=== PATIENT | male | born 1970 | race Two or more races ===

== ENCOUNTER 2016-07-11 21:19 | Emergency (ER) | payer MEDICAID ==
[~2016-07-11] VITALS: Ht 175.3 cm; Wt 72.6 kg
[~2016-07-11 21:19] MED LIST: ATIVAN1 MG ORAL; NORVIR100 MG ORAL; PREZISTA600 MG ORAL; TRUVADA1 TAB ORAL; XANAX0.25 MG ORAL; ZANTAC150 MG ORAL
[2016-07-11 21:28] VITALS: BP 180/100
[2016-07-11] MEDS ORDERED: RESTORIL30 MG ORAL (21:39)
--- NOTE | 2016-07-11 21:40 | Emergency Room Report ---
History of Present Illness General Chief Complaint: Allergic Reaction Source: Patient Present Illness HPI This is a 45-year-old male with a history of anxiety and HIV. Previous visits show history of methamphetamine abuse. Patient presents with chief complaint of insomnia. He thought that he may have an allergic reaction. His mom was treated for scabies in March. He was also treated. He still has some itching to the back of his neck and back he seen another doctor. He was placed on a Medrol Dosepak. He only had about a day left on it. Since he has been on it he said he could not sleep last 4 days. Her jittery. No fever or chills. He thought this may be an allergic reaction. Denies any other complaint. Denies any drug use. No help with the Xanax. Allergies: Coded Allergies: No Known Allergies (Unverified , 02/18/13) Patient History Past Medical History: see triage record, old chart reviewed, psych hx, HIV Past Surgical History: other Pertinent Family History: none Social History: Denies: smoking Immunizations: other Reviewed Nursing Documentation: PMH: Agreed, PSxH: Agreed Nursing Documentation-PMH Hx Cardiac Problems: No Hx Hypertension: No Hx Pacemaker: No Hx Asthma: No Hx COPD: No Hx Cancer: No Hx Dialysis: No History Of Psychiatric Problem: No Hx Neurological Problems: No Hx Cerebrovascular Accident: No Hx Seizures: No Review of Systems Eye: Denies: blurred vision, eye pain ENT: Denies: ear pain, nose congestion, throat swelling Respiratory: Denies: cough, shortness of breath Cardiovascular: Denies: chest pain, palpitations Gastrointestinal: Denies: abdominal pain, diarrhea, nausea, vomiting Musculoskeletal: Denies: back pain, joint pain Skin: Denies: rash Neurological: Denies: headache, numbness Endocrine: Denies: increased thirst, increased urine Hematologic/Lymphatic: Denies: easy bruising All Other Systems: negative except mentioned in HPI Physical Exam Vital Signs Date Time Temp Pulse Resp B/P Pulse Ox O2 Delivery O2 Flow Rate FiO2 07/11/16 21:28 97.5 98 16 180/100 96 Room Air vitals with hypertension Sp02 EP Interpretation: reviewed, normal General Appearance: well appearing, no apparent distress, alert Head: normocephalic, atraumatic Eyes: bilateral eye EOMI, bilateral eye PERRL ENT: hearing grossly normal, normal pharynx Neck: full range of motion, supple, no meningismus Respiratory: chest non-tender, lungs clear, normal breath sounds Cardiovascular #1: regular rate, rhythm, no murmur Gastrointestinal: normal bowel sounds, non tender, no mass, no organomegaly, no bruit, non-distended Musculoskeletal: back normal, gait/station normal, normal range of motion Psychiatric: anxious Skin: warm/dry Medical Decision Making Diagnostic Impression: Primary Impression: Anxiety Additional Impression: Insomnia Qualified Codes: G47.00 - Insomnia, unspecified ER Course Patient presents with insomnia and anxiety. This is probably steroid induced. No evidence of allergic reaction. Patient reassured given Benadryl. He felt better. We'll discharge home. I will send and drug screen to make sure he is not on methamphetamine again. Last Vital Signs Date Time Temp Pulse Resp B/P Pulse Ox O2 Delivery O2 Flow Rate FiO2 07/11/16 21:28 97.5 98 16 180/100 96 Room Air Status: improved Disposition: HOME, SELF-CARE Condition: Stable Scripts Temazepam (RESTORIL*) 30 Mg Capsule 30 MG ORAL BEDTIME, #7 CAP 0 Refills Prov: WILLIAN SALVADOR M.D. 07/11/16 Additional Instructions: Followup with your DrRigoberto in 7 days. You may stop the Medrol Dosepak. Return if symptom worsen. WILLIAN SALVADOR M.D. July 11, 2016 21:40
[2016-07-11] MEDS ORDERED: DiphenhydrAMINE 50mg/ml Inj IM ONE (21:45)
[2016-07-11 21:51] VITALS: BP 145/98
== END 2016-07-11 21:59 | disposition home or self-care (01) ==
LOC: EMR 21:45
DX: G47.00 Insomnia, unspecified (principal); L29.9 Pruritus, unspecified; F15.10 Other stimulant abuse, uncomplicated
CPT/HCPCS: 80300; 96372; 99283; J1200

== ENCOUNTER 2016-07-22 20:07 | Emergency (ER) | payer MEDICAID ==
[~2016-07-22] VITALS: Ht 180.3 cm; Wt 77.1 kg
[~2016-07-22 20:07] MED LIST changes: +RESTORIL30 MG ORAL
--- NOTE | 2016-07-22 20:20 | Emergency Room Report ---
History of Present Illness General Chief Complaint: Behavioral Complaint Source: Patient, EMS Present Illness HPI Patient presents with complaints of anxiousness History from the patient somewhat limited as he appears to have evidence of flight of thought not able to focus and provide appropriate history Patient discusses having history of bipolar disorder Reports having a medication reaction last week At this time denies any headache denies any chest pain Patient reported are totally hallucinations however is nonspecific regarding suicidal thought, Allergies: Coded Allergies: DIPHENHYDRAMINE (Unverified Allergy, Unknown, 07/22/16) Patient History Past Medical History: see triage record Pertinent Family History: none Reviewed Nursing Documentation: PMH: Agreed, PSxH: Agreed Nursing Documentation-PMH Hx Cardiac Problems: No Hx Hypertension: No Hx Pacemaker: No Hx Asthma: No Hx COPD: No Hx Cancer: No Hx Dialysis: No Hx Cerebrovascular Accident: No Hx Seizures: No Review of Systems All Other Systems: limited - Other than the ones mentioned in the history of present illness all others are reviewed however they do stay limited due to the patient's mental status Physical Exam Vital Signs Date Time Temp Pulse Resp B/P Pulse Ox O2 Delivery O2 Flow Rate FiO2 07/22/16 19:57 98.2 94 18 130/47 97 Room Air Sp02 EP Interpretation: reviewed, normal General Appearance: well appearing, no apparent distress Head: normocephalic, atraumatic Eyes: bilateral eye EOMI, bilateral eye PERRL ENT: hearing grossly normal, normal pharynx, TMs + canals normal, uvula midline Neck: full range of motion, supple, no meningismus, no bony tend Respiratory: lungs clear, normal breath sounds, no rhonchi, no respiratory distress, no retraction, no accessory muscle use Cardiovascular #1: normal peripheral pulses, regular rate, rhythm, no edema, no gallop, no JVD, no murmur Gastrointestinal: normal bowel sounds, non tender, soft, no mass, no organomegaly, non-distended, no guarding, no hernia, no pulsatile mass, no rebound Genitourinary: no CVA tenderness Musculoskeletal: normal inspection Neurologic: oriented x3, responsive, stage technician III-XII nml as tested, motor strength/ tone normal, sensory intact Psychiatric: anxious - Patient appears mildly anxious, has rambling of thought process Skin: normal color, no rash, warm/dry, palpation normal Lymphatic: normal inspection, no adenopathy Medical Decision Making Diagnostic Impression: Primary Impression: Behavioral disorder Additional Impression: Methamphetamine abuse ER Course Patient have further blood work performed and medically cleared Given the patient's complaints and presentation I felt psychiatric consultation was appropriate Patient was seen by psychiatry in the morning Please refer to her note for the full specifics Patient was recommended for outpatient evaluation and discharge for close followup Labs Test 07/22/16 21:23 07/22/16 23:07 White Blood Count 6.3 K/UL (4.8-10.8) Red Blood Count 4.76 M/UL (4.70-6.10) Hemoglobin 14.6 G/DL (14.2-18.0) Hematocrit 40.8 % (42.0-52.0) Mean Corpuscular Volume 86 FL (80-99) Mean Corpuscular Hemoglobin 30.7 PG (27.0-31.0) Mean Corpuscular Hemoglobin Concent 35.8 G/DL (32.0-36.0) Red Cell Distribution Width 10.6 % (11.6-14.8) Platelet Count 193 K/UL (150-450) Mean Platelet Volume 5.4 FL (6.5-10.1) Neutrophils (%) (Auto) 70.2 % (45.0-75.0) Lymphocytes (%) (Auto) 20.0 % (20.0-45.0) Monocytes (%) (Auto) 8.3 % (1.0-10.0) Eosinophils (%) (Auto) 1.0 % (0.0-3.0) Basophils (%) (Auto) 0.5 % (0.0-2.0) Sodium Level 141 mEQ/L (135-145) Potassium Level 4.0 mEQ/L (3.4-4.9) Chloride Level 102 mEQ/L (98-107) Carbon Dioxide Level 24 mEQ/L (20-30) Anion Gap 15 (5-15) Blood Urea Nitrogen 12 mg/dL (7-23) Creatinine 0.9 mg/dL (0.7-1.2) Estimat Glomerular Filtration Rate > 60 mL/min (>60) Glucose Level 101 mg/dL (74-106) Calcium Level 9.1 mg/dL (8.6-10.2) Total Bilirubin 0.7 mg/dL (0.0-1.2) Aspartate Amino Transf (AST/SGOT) 14 U/L (5-40) Alanine Aminotransferase (ALT/SGPT) 18 U/L (3-41) Alkaline Phosphatase 69 U/L (40-129) Total Protein 6.6 g/dL (6.6-8.7) Albumin 4.2 g/dL (3.5-5.2) Globulin 2.4 g/dL Albumin/Globulin Ratio 1.7 (1.0-2.7) Salicylates Level < 1 mg/dL (10-30) Acetaminophen Level < 10 ug/mL (10-30) Serum Alcohol < 10 mg/dL Urine Opiates Screen Negative (NEGATIVE) Urine Barbiturates Screen Negative (NEGATIVE) Phencyclidine (PCP) Screen Negative (NEGATIVE) Urine Amphetamines Screen Negative (NEGATIVE) Urine Benzodiazepines Screen Negative (NEGATIVE) Urine Cocaine Screen Negative (NEGATIVE) Urine Marijuana (THC) Screen Negative (NEGATIVE) Last Vital Signs Date Time Temp Pulse Resp B/P Pulse Ox O2 Delivery O2 Flow Rate FiO2 07/22/16 19:57 98.2 94 18 130/47 97 Room Air Status: improved Disposition: HOME, SELF-CARE Condition: Improved Additional Instructions: Patient is provided with the discharge instructions notified to follow up with primary doctor in the next 2-3 days otherwise return to the er with any worsening symptoms. Please note that this report is being documented using [employer] technology. This can lead to erroneous entry secondary to incorrect interpretation by the dictating instrument. PAYAL PEREZ D.O. Jul 22, 2016 20:19
[2016-07-22] MEDS ORDERED: ALPRAZolam 0.5mg tab ORAL ONE (20:30)
[2016-07-22 21:42] LABS: BASOPHILS % (AUTO) 0.5 % (0.0-2.0); MEAN CORPUSCULAR HEMOGLOBIN 30.7 PG (27.0-31.0); MEAN CORPUSCULAR HGB CONC 35.8 G/DL (32.0-36.0); MEAN CORPUSCULAR VOLUME 86 FL (80-99); MEAN PLATELET VOLUME 5.4 FL (6.5-10.1); MONOCYTES % (AUTO) 8.3 % (1.0-10.0); NEUTROPHILS % (AUTO) 70.2 % (45.0-75.0); PLATELET COUNT 193 K/UL (150-450); RED BLOOD COUNT 4.76 M/UL (4.70-6.10); RED CELL DISTRIBUTION WIDTH 10.6 % (11.6-14.8); WHITE BLOOD COUNT 6.3 K/UL (4.8-10.8)
[2016-07-22 22:00] VITALS: BP 135/77
[2016-07-22 22:01] LABS: ACETAMINOPHEN < 10 ug/mL (10-30); ALANINE AMINOTRANSFERASE 18 U/L (3-41); ALBUMIN/GLOBULIN RATIO 1.7 (1.0-2.7); ALCOHOL < 10 mg/dL; ANION GAP 15 (5-15); ASPARTATE AMINO TRANSFERASE 14 U/L (5-40); CALCIUM 9.1 mg/dL (8.6-10.2); CARBON DIOXIDE 24 mEQ/L (20-30); CHLORIDE 102 mEQ/L (98-107); CREATININE 0.9 mg/dL (0.7-1.2); GLOMERULAR FILTRATION RATE > 60 mL/min (>60); HEMOLYSIS 1; SODIUM 141 mEQ/L (135-145); TOTAL PROTEIN 6.6 g/dL (6.6-8.7)
[2016-07-23] VITALS (7 sets, daily range): BP systolic 116–133; BP diastolic 78–88
--- NOTE | 2016-07-23 22:15 | Consultation ---
DATE OF CONSULTATION: 07/23/2016 HISTORY OF PRESENT ILLNESS: The patient was seen in the ER. The patient is a 45-year-old male with a history of anxiety disorder and HIV. The patient came to the emergency room complaining of severe anxiety. He stated that he has bipolar disorder. Apparently, he has been to [facility] earlier this month and he was given Benadryl for severe insomnia. During the evaluation, the patient appeared anxious. Denied any suicidal or homicidal ideation, did not endorse any auditory hallucinations, however, he did endorse persecutory delusions. He believes that others are monitoring him and they are his house. Apparently, the patient has been under a lot of stress in the context of being in conflict with his tenant. He lives with his mother, who is also stressed out because of the tension going on between the tenant for living in the same premises they are living. The patient has not been using drugs for the past kbltr-lgn-s-half half years. He used crystal meth for six months gsdxo-fmm-a-half years ago. He has human immunodeficiency virus, compliant with his medications. Recently, he had a laboratory workup, viral load undetected and CD4 within normal limits. PAST PSYCHIATRIC HISTORY: He has a history of anxiety disorder and depression. He has been prescribed Zyprexa recently for not sleeping and being delusional, however, he never filled the medication. He has been taking Xanax for anxiety. PAST MEDICAL HISTORY: Human immunodeficiency virus. ALLERGIES: No known drug allergies. It appears that the patient has side effects from Benadryl, which includes hallucinations. SUBSTANCE USE HISTORY: As I mentioned, history of crystal meth efszm-qdq-p-half years ago. He has been clean. MENTAL STATUS EXAMINATION: Alert and oriented x4. Pleasant and cooperative. Mood is anxious. Affect is constricted. Congruent mood. Thought process is concrete. Thought content, no suicidal or homicidal ideation. ASSESSMENT: Psychotic disorder, not otherwise specified. PLAN: 1. The patient will be prescribed risperidone 2 mg p.o. at bedtime. 2. He will be given a Psychiatry referral. 3. The patient is not an imminent danger to self or others as he is not suicidal or homicidal. He will be discharged with a prescription. Domingo Rainey M.D. DR: JOSH JOB#: [id number] CC:
== END 2016-07-23 10:13 | disposition home or self-care (01) ==
LOC: EDBD 20:07 → EMR 20:19
DX: F91.9 Conduct disorder, unspecified (principal); F15.10 Other stimulant abuse, uncomplicated; Z88.8 Allergy status to other drugs, medicaments and biological substances; F31.9 Bipolar disorder, unspecified
CPT/HCPCS: 36415; 80053; 80300; 80329; 85025; 99284

== ENCOUNTER 2018-02-24 00:55 | Emergency (ER) | payer MEDICAID ==
[~2018-02-24] VITALS: Ht 177.8 cm; Wt 79.4 kg
[2018-02-24] MEDS ORDERED: TRAZODONE HCL50 MG ORAL (01:23)
[2018-02-24] MEDS ORDERED: HYDROXYZINE HCL50 M1 PO (01:23)
[2018-02-24] MEDS ORDERED: TRIUMEQ 600-501 EACH PO (01:23)
--- NOTE | 2018-02-24 01:27 | NUR ---
ED Nurse Note: pt came in due to foreign object sensation on throat. pt stated he took his 2 evening pill ans since then start to feel it. pt took trazadone and hydroxyzine. pt denies pain. will continue to monitor.
[2018-02-24 01:28] VITALS: BP 137/90
--- NOTE | 2018-02-24 01:32 | Emergency Room Report ---
History of Present Illness General Chief Complaint: Foreign Body Source: Patient Present Illness HPI This is a 47-year-old male with a history anxiety. He presents with chief complaint of foreign body sensation in his throat. He said he was taking his trazodone and Vistaril. He felt of pain to the left side of his throat. He thought it may been stuck there. He's been drinking without a problem. No fever chills but no nausea no vomiting. Denies any other complaint. Allergies: Coded Allergies: DIPHENHYDRAMINE (Unverified Allergy, Unknown, 07/22/16) Patient History Past Medical History: see triage record, old chart reviewed, psych hx - Anxiety Past Surgical History: none Pertinent Family History: none Social History: Denies: smoking Immunizations: other Reviewed Nursing Documentation: PMH: Agreed; PSxH: Agreed Nursing Documentation-PMH Hx Hypertension: No Hx Pacemaker: No Hx Asthma: No Hx COPD: No Hx Cancer: No Hx Dialysis: No Hx Neurological Problems: No Hx Cerebrovascular Accident: No Hx Seizures: No Review of Systems Eye: Denies: eye pain, blurred vision ENT: Denies: ear pain, nose congestion, throat swelling Respiratory: Denies: cough, shortness of breath Cardiovascular: Denies: chest pain, palpitations Gastrointestinal: Denies: abdominal pain, diarrhea, nausea, vomiting Musculoskeletal: Denies: back pain, joint pain Skin: Denies: rash Neurological: Denies: headache, numbness Endocrine: Denies: increased thirst, increased urine Hematologic/Lymphatic: Denies: easy bruising All Other Systems: negative except mentioned in HPI Physical Exam Vital Signs Date Time Temp Pulse Resp B/P (MAP) Pulse Ox O2 Delivery O2 Flow Rate FiO2 02/24/18 01:17 98.2 64 16 137/90 98 Room Air vitals normal Sp02 EP Interpretation: reviewed, normal General Appearance: well appearing, no apparent distress, alert Head: normocephalic, atraumatic Eyes: bilateral eye PERRL, bilateral eye EOMI ENT: hearing grossly normal, normal pharynx Neck: full range of motion, supple, no meningismus Respiratory: chest non-tender, lungs clear, normal breath sounds Cardiovascular #1: regular rate, rhythm, no murmur Gastrointestinal: normal bowel sounds, non tender, no mass, no organomegaly, no bruit, non-distended Musculoskeletal: back normal, gait/station normal, normal range of motion Neurologic: alert, oriented x3 Psychiatric: anxious Skin: warm/dry Medical Decision Making Diagnostic Impression: Primary Impression: Anxiety Additional Impression: Globus sensation ER Course Patient with a foreign body sensation in his throat. No evidence any foreign body that I can see by physical exam. Reassure patient that even if there is a small pill stuck in there were dissolved without any issue. We'll discharge home. Last Vital Signs Date Time Temp Pulse Resp B/P (MAP) Pulse Ox O2 Delivery O2 Flow Rate FiO2 02/24/18 01:17 98.2 64 16 137/90 98 Room Air Status: unchanged Disposition: HOME, SELF-CARE Condition: Stable Additional Instructions: Follow-up your doctor in 7 days. Eat and drink normally. There is no complication from a pill scratching or stuck in your esophagus. Return if worse. Evangelist Hallman MD Feb 24, 2018 01:32
--- NOTE | 2018-02-24 01:35 | NUR ---
ED Nurse Note: pt was cleared for discharge by prasanna. discharge instruction and prescription explained and pt able to verbalize understanding. pt aox4. vss. id band removed. pt able to walk with steady gait. pt left the ed with all belongings
== END 2018-02-24 01:40 | disposition home or self-care (01) ==
LOC: EMR 01:36
DX: F41.9 Anxiety disorder, unspecified (principal); R09.89 Other specified symptoms and signs involving the circulatory and respiratory systems
CPT/HCPCS: 99282

== ENCOUNTER 2018-07-01 14:13 | Emergency (ER) | payer MEDICAID ==
[~2018-07-01] VITALS: Ht 180.3 cm; Wt 77.6 kg
[~2018-07-01 14:13] MED LIST changes: +HYDROXYZINE HCL50 M1 PO; +TRAZODONE HCL50 MG ORAL; +TRIUMEQ 600-501 EACH PO
[2018-07-01] MEDS ORDERED: PROPRANOLOL HCL10 MG ORAL (14:34)
--- NOTE | 2018-07-01 14:35 | NUR ---
ED Nurse Note: Patient presents to ER due to left big toe injury; A box of ceramic tile fell onto his toe yesterday ~ 1900. Redness, swelling on the left big toe noted with discoloration (blue-grayish) on the nail bed. Patient able to wiggle left toes, + sensation. Skin warm to touch. Placed patient in chair.
--- NOTE | 2018-07-01 15:27 | NUR ---
ED Nurse Note: prasanna madera done imaging done awaiting orders.
[2018-07-01] MEDS ORDERED: Bacitracin Oint UD TOPIC ONE ×2 (15:45→15:46)
[2018-07-01] MEDS ORDERED: BACITRACIN15 GM TOPIC (15:55)
[2018-07-01] MEDS ORDERED: ACETAMINOPHEN-1 EAC1 ORAL (15:55)
--- NOTE | 2018-07-01 16:00 | Diagnostic Imaging Report ---
Indication: Foot pain Comparison: None Findings: 3 views of the left foot were obtained. There is a subtle lucency at the base of the first distal phalange on the lateral side, demonstrated only on one of the frontal projections. Please correlate clinically. This is likely a small nondisplaced fracture. The remainder the exam is negative. IMPRESSION: Suspected acute intra-articular fracture at the base of the first proximal phalange extending into the interphalangeal joint. Correlate clinically.
[2018-07-01 16:14] VITALS: BP 135/89
--- NOTE | 2018-07-01 16:16 | NUR ---
ED Nurse Note: luis titus taped pt given aci and script verbalized understanding ambulated out with strong and steady gait.
--- NOTE | 2018-07-01 18:52 | Emergency Room Report ---
History of Present Illness General Chief Complaint: Lower Extremity Injury Source: Patient Present Illness HPI 47-year-old male presents ED for evaluation. Complaining of bruising and swelling and pain to the left big toe. States that he dropped a box of tiles on his foot last night at hardware store. Pain is throbbing, 8 out of 10, nonradiating. Notes purple discoloration underneath the nailbed. Denies any bleeding. Denies any other injuries. No other aggravating relieving factors. Denies any other associated symptoms Allergies: Coded Allergies: DIPHENHYDRAMINE (Unverified Allergy, Unknown, 07/22/16) Patient History Past Medical History: none Past Surgical History: none Pertinent Family History: none Social History: Denies: smoking, alcohol use, drug use Immunizations: UTD Reviewed Nursing Documentation: PMH: Agreed; PSxH: Agreed Nursing Documentation-PMH Past Medical History: No History, Except For Hx Hypertension: No Hx Pacemaker: No Hx Asthma: No Hx COPD: No Hx Cancer: No Hx Dialysis: No Hx Neurological Problems: No Hx Cerebrovascular Accident: No Hx Seizures: No Review of Systems All Other Systems: negative except mentioned in HPI Physical Exam Vital Signs Date Time Temp Pulse Resp B/P (MAP) Pulse Ox O2 Delivery O2 Flow Rate FiO2 07/01/18 14:30 97.5 95 16 96 Room Air 07/01/18 16:14 135/89 Sp02 EP Interpretation: reviewed, normal General Appearance: no apparent distress, alert, GCS 15, non-toxic Head: normocephalic Eyes: bilateral eye normal inspection, bilateral eye PERRL ENT: normal ENT inspection Neck: normal inspection Respiratory: normal inspection Cardiovascular #1: normal inspection Gastrointestinal: normal inspection Rectal: deferred Genitourinary: no CVA tenderness Musculoskeletal: tender - bruising/swelling L big toe. subungual hematoma L big toe Neurologic: alert, oriented x3, responsive, motor strength/tone normal, sensory intact, speech normal Psychiatric: normal inspection Skin: normal inspection Lymphatic: normal inspection Procedures Splinting Splinting : Consent: Verbal Hand-Made Type: tacho tape Pre-Proc Neuro Vasc Exam: normal Post-Proc Neuro Vasc Exam: normal Patient Tolerated: Well Complications: None Additional Procedure Procedure Narrative subungual hematoma Patient placed on stretcher. Foot is draped/prepped in sterile fashion. I insert the cautery directly into the nail bed until no further ressistance is met and blood is released. I then apply pressure, until all the blood is released, causing relief in pressure to the nailbed. Dressing applied. Patient tolerated procedure without complication Medical Decision Making Diagnostic Impression: Primary Impression: Subungual hematoma Additional Impression: Toe fracture Qualified Codes: S92.415A - Nondisplaced fracture of proximal phalanx of left great toe, initial encounter for closed fracture ER Course Hospital Course 47-year-old male presents to ED with swelling and bruising to L big toe Differential-contusion, fracture, dislocation, subungual hematoma Clinical course Patient placed on stretcher. After initial history and physical I ordered xrays L foot X-ray show intraarticular fx 1st proxmal phalanx. Discussed findings with patient. Using cautery device I drained the subungual hematoma underneath the nail bed without difficulty. Patient notes immediate relief of pain and pressure. Tacho tape applied. Bacitracin and dressing applied. Safe for discharge and close outpatient follow-up. I'll provide ortho referrals. Diagnosis - subungual hematoma, toe fx Stable and discharged to home with prescription for Tylenol No. 3, bacitracin. wound Care instructions given. modified activity. Followup with PMD/ortho. Return to ED if symptoms recur or worsen Other X-Ray Diagnostic Results Other X-Ray Diagnostic Results : X-Ray ordered: L foot # of Views/Limited Vs Complete: 3 View Indication: Pain EP Interpretation: Yes Interpretation: no dislocation, no soft tissue swelling, other - intrarticular fx base of 1st proximal pahlanx Impression: Other - fx Electronically Signed by: Electronically signed by tK House MD Last Vital Signs Date Time Temp Pulse Resp B/P (MAP) Pulse Ox O2 Delivery O2 Flow Rate FiO2 07/01/18 16:14 97.5 97 16 135/89 96 Room Air Status: improved Disposition: HOME, SELF-CARE Condition: Stable Scripts Bacitracin (Bacitracin) 28.4 Gm Oint...g. 1 APPLIC TOPIC THREE TIMES A DAY, #28.4 GM Prov: Kt House MD 07/01/18 Acetaminophen With Codeine (T#3) (TYLENOL #3 TAB*) Y Tab 1 TAB ORAL Q8H PRN for For Pain, #20 TAB Prov: Kt House MD 07/01/18 Referrals: NON PHYSICIAN (PCP) [facility] Open 24 hour /7 days a week by Appointment Only [address] [facility] [address] Patient Instructions: Subungual Hematoma, [id number] Kt House MD July 01, 2018 18:52
== END 2018-07-01 16:17 | disposition home or self-care (01) ==
LOC: EMR 14:33
DX: S92.415A Nondisplaced fracture of proximal phalanx of left great toe, initial encounter for closed fracture (principal); S90.212A Contusion of left great toe with damage to nail, initial encounter; W20.8XXA Other cause of strike by thrown, projected or falling object, initial encounter; Y92.512 Supermarket, store or market as the place of occurrence of the external cause; Z88.8 Allergy status to other drugs, medicaments and biological substances
CPT/HCPCS: 11740; 73630; 99283; Z7502

== ENCOUNTER 2019-04-24 14:13 | Emergency (ER) | payer MEDICAID ==
[~2019-04-24] VITALS: Ht 180.3 cm; Wt 77.1 kg
[~2019-04-24 14:13] MED LIST changes: +ACETAMINOPHEN-1 EAC1 ORAL; +BACITRACIN15 GM TOPIC; +PROPRANOLOL HCL10 MG ORAL
--- NOTE | 2019-04-24 14:28 | NUR ---
ED Nurse Note: Pt ambulated to ED d/t abdominal pain; n/v and diarrhea for 5 days that got worsen today. Pt is AOx4, calm and cooperative. Pt was able to urinate; obtained specimen; sent to labs. Will continue to monitor.
[2019-04-24 14:30] VITALS: BP 113/71
--- NOTE | 2019-04-24 15:08 | NUR ---
ED Nurse Note: Dr. Smith at bedside.
--- NOTE | 2019-04-24 15:24 | Emergency Room Report ---
History of Present Illness General Chief Complaint: Abdominal Pain Source: Patient Present Illness HPI Patient presents with abdominal cramping and diarrhea. Patient was treated in early March with Flagyl without lab testing. A few days ago he started having diarrhea. He was seen in the [facility] and prescribed azithromycin. The diarrhea has persisted. Today he woke up vomiting. There is abdominal cramping that is diffuse that he rates 3/10. He has been taking loperamide. He has no medicine for vomiting. He has been feeling weak. He denies fevers or chills. There is no sore throat or dysuria or discharge. He has been drinking Pedialyte. Today vomited the Pedialyte without any blood or bile. There is been no blood in the stool. This was preceded with an episode of reaming a partner. He denies fevers or chills. Patient was seen last week at the [facility] and told his CD4 counts are good and his viral load is low. He states for stool samples were given to the [facility]. He does not have results of labs or stool samples. No chest pain, palpitations, shortness of breath, joint pain, rashes, depression , anxiety, visual changes, headache. Allergies: Coded Allergies: DIPHENHYDRAMINE (Unverified Allergy, Unknown, 07/22/16) METHYLPREDNISOLONE (Unverified Allergy, Unknown, 07/11/18) Uncoded Allergies: METHLYPREDNISOLONE (Allergy, Unknown, 07/11/18) Patient History Past Medical History: see triage record Social History: Denies: smoking, drug use - Prior methamphetamine use Social History Narrative works at [employer] lives with his mother Reviewed Nursing Documentation: PMH: Agreed; PSxH: Agreed Nursing Documentation-PMH Hx Hypertension: No Hx Pacemaker: No Hx Asthma: No Hx COPD: No Hx Cancer: No Hx Dialysis: No Hx Cerebrovascular Accident: No Hx Seizures: No Review of Systems All Other Systems: negative except mentioned in HPI Physical Exam Vital Signs Date Time Temp Pulse Resp B/P (MAP) Pulse Ox O2 Delivery O2 Flow Rate FiO2 04/24/19 14:19 98.4 93 18 113/71 (85) 99 Room Air Sp02 EP Interpretation: reviewed, normal General Appearance: well appearing, no apparent distress, GCS 15 Head: normocephalic Eyes: bilateral eye PERRL, bilateral eye other - Slight asymmetry between eyes ENT: normal pharynx, moist mucus membranes Neck: full range of motion, supple Respiratory: chest non-tender, lungs clear, normal breath sounds Cardiovascular #1: regular rate, rhythm, no edema Cardiovascular #2: 2+ radial (R) Gastrointestinal: normal inspection, normal bowel sounds, non tender, no mass, non-distended, scaphoid Genitourinary: no CVA tenderness Musculoskeletal: back normal, normal range of motion, gait/station normal Neurologic: alert, oriented x3, grossly normal Psychiatric: mood/affect normal Skin: no rash, warm/dry Medical Decision Making Diagnostic Impression: Primary Impression: Infectious diarrhea Additional Impressions: Dehydration HIV (human immunodeficiency virus infection) Qualified Codes: B20 - Human immunodeficiency virus [HIV] disease ER Course Patient with HIV presents with vomiting and diarrhea while on azithromycin. Differential is quite broad eluding gastroenteritis, food poisoning, parasitic infection, Campylobacter, C. difficile amongst others. Concerned about dehydration and electrolyte imbalance. Patient evaluated with labs. Patient treated with IV hydration and with a dose of Pepcid. Patient declined Zofran as not nauseated. White count low. No left shift. Few white cells in stool guaiac negative. Patient tolerating oral intake. Improved after IV hydration. Discussed treatment plan with patient. As there are white cells in the stool coverage for infectious diarrhea undertaken. Patient stable for outpatient observation and treatment. Laboratory Tests Test 04/24/19 15:00 04/24/19 15:25 White Blood Count 4.5 K/UL (4.8-10.8) L Red Blood Count 4.80 M/UL (4.70-6.10) Hemoglobin 13.8 G/DL (14.2-18.0) L Hematocrit 40.2 % (42.0-52.0) L Mean Corpuscular Volume 84 FL (80-99) Mean Corpuscular Hemoglobin 28.7 PG (27.0-31.0) Mean Corpuscular Hemoglobin Concent 34.2 G/DL (32.0-36.0) Red Cell Distribution Width 12.1 % (11.6-14.8) Platelet Count 237 K/UL (150-450) Mean Platelet Volume 5.6 FL (6.5-10.1) L Neutrophils (%) (Auto) 57.2 % (45.0-75.0) Lymphocytes (%) (Auto) 22.5 % (20.0-45.0) Monocytes (%) (Auto) 16.5 % (1.0-10.0) H Eosinophils (%) (Auto) 1.8 % (0.0-3.0) Basophils (%) (Auto) 1.9 % (0.0-2.0) Prothrombin Time 9.9 SEC (9.30-11.50) Prothrombin Time INR 0.9 (0.9-1.1) Activated Partial Thromboplast Time 29 SEC (23-33) Sodium Level 139 MMOL/L (136-145) Potassium Level 3.4 MMOL/L (3.5-5.1) L Chloride Level 104 MMOL/L (98-107) Carbon Dioxide Level 20 MMOL/L (21-32) L Anion Gap 15 mmol/L (5-15) Blood Urea Nitrogen 14 mg/dL (7-18) Creatinine 1.0 MG/DL (0.55-1.30) Estimate Glomerular Filtration Rate > 60 mL/min (>60) Glucose Level 94 MG/DL (74-106) Calcium Level 8.7 MG/DL (8.5-10.1) Total Bilirubin 1.3 MG/DL (0.2-1.0) H Direct Bilirubin 0.2 MG/DL (0.0-0.3) Aspartate Amino Transferase (AST) 17 U/L (15-37) Alanine Aminotransferase (ALT) 23 U/L (12-78) Alkaline Phosphatase 85 U/L (46-116) Total Protein 7.0 G/DL (6.4-8.2) Albumin 3.4 G/DL (3.4-5.0) Globulin 3.6 g/dL Albumin/Globulin Ratio 0.9 (1.0-2.7) L Lipase 78 U/L (73-393) Chlamydia trachomatis RNA Pending Neisseria gonorrhoeae RNA Pending Stool Occult Blood Negative (NEGATIVE) Microbiology Date/Time Source Procedure Growth Status 04/24/19 15:25 Stool WBC Smear - Final Complete Last Vital Signs Date Time Temp Pulse Resp B/P (MAP) Pulse Ox O2 Delivery O2 Flow Rate FiO2 04/24/19 17:40 98.4 80 20 115/74 100 Room Air Status: improved Disposition: HOME, SELF-CARE Condition: Improved Scripts Ondansetron Odt* (ZOFRAN ODT*) 4 Mg Tab.rapdis 4 MG BC EVERY 8 HOURS, #6 TAB 0 Refills Prov: Tani Smith MD 04/24/19 Metronidazole* (FLAGYL*) 500 Mg Tablet 500 MG ORAL BID, #14 TAB Prov: Tani Smith MD 04/24/19 Ciprofloxacin Hcl* (CIPROFLOXACIN HCL*) 500 Mg Tablet 500 MG ORAL Q12H, #10 TAB 0 Refills Prov: Tani Smith MD 04/24/19 Referrals: NON PHYSICIAN (PCP) Tani Smith MD Apr 24, 2019 15:24
[2019-04-24 15:41] LABS: BASOPHILS % (AUTO) 1.9 % (0.0-2.0); EOSINOPHILS % (AUTO) 1.8 % (0.0-3.0); HEMATOCRIT 40.2 % (42.0-52.0); HEMOGLOBIN 13.8 G/DL (14.2-18.0); LYMPHOCYTES % (AUTO) 22.5 % (20.0-45.0); MEAN CORPUSCULAR VOLUME 84 FL (80-99); MONOCYTES % (AUTO) 16.5 % (1.0-10.0); NEUTROPHILS % (AUTO) 57.2 % (45.0-75.0); PLATELET COUNT 237 K/UL (150-450); RED CELL DISTRIBUTION WIDTH 12.1 % (11.6-14.8); WHITE BLOOD COUNT 4.5 K/UL (4.8-10.8)
[2019-04-24 15:42] LABS: ANION GAP 15 mmol/L (5-15); BLOOD UREA NITROGEN 14 mg/dL (7-18); CALCIUM 8.7 MG/DL (8.5-10.1); CARBON DIOXIDE 20 MMOL/L (21-32); CHLORIDE 104 MMOL/L (98-107); POTASSIUM 3.4 MMOL/L (3.5-5.1); SODIUM 139 MMOL/L (136-145)
[2019-04-24 15:46] LABS: INR 0.9 (0.9-1.1)
[2019-04-24 15:53] LABS: ALANINE AMINOTRANSFERASE 23 U/L (12-78); ALBUMIN 3.4 G/DL (3.4-5.0); ALBUMIN/GLOBULIN RATIO 0.9 (1.0-2.7); ALKALINE PHOSPHATASE 85 U/L (46-116); ASPARTATE AMINO TRANSFERASE 17 U/L (15-37); BILIRUBIN,TOTAL 1.3 MG/DL (0.2-1.0)
[2019-04-24 15:54] LABS: BILIRUBIN,DIRECT 0.2 MG/DL (0.0-0.3)
[2019-04-24 17:17] VITALS: BP 115/74
--- NOTE | 2019-04-24 17:20 | NUR ---
ED Nurse Note: Offered juice to pt.
[2019-04-24] MEDS ORDERED: Ciprofloxacin 500mg tab ORAL ONE (17:30)
[2019-04-24] MEDS ORDERED: metroNIDAZOLE 500mg tab ORAL ONE (17:30)
[2019-04-24] MEDS ORDERED: CIPROFLOXACIN500 M2 ORAL (17:31)
[2019-04-24] MEDS ORDERED: ONDANSETRON ODT4 MG BC (17:31)
[2019-04-24] MEDS ORDERED: METRONIDAZOLE500 MG ORAL (17:31)
[2019-04-24 17:40] VITALS: BP 115/74
--- NOTE | 2019-04-24 17:40 | NUR ---
ER DISCHARGE NOTE: Patient is cleared to be discharged per ERMD, pt is aox4, on room air, with stable vital signs. pt was given dc and prescription instructions, pt was able to verbalize understanding, pt id band and iv site removed without complications. pt is able to ambulate with steady gait. pt took all belongings.
== END 2019-04-24 17:40 | disposition home or self-care (01) ==
LOC: EMR 15:10
DX: A09 Infectious gastroenteritis and colitis, unspecified (principal); E86.0 Dehydration; B20 Human immunodeficiency virus [HIV] disease; Z88.8 Allergy status to other drugs, medicaments and biological substances
CPT/HCPCS: 36415; 80053; 82248; 82270; 83690; 85025; 85610; 85730; 87045; 87205; 87324; 87491; 87590; 96361; 96374; 96375; J2405; J7030; S0028; Z7502; 99284

== ENCOUNTER 2019-10-06 19:51 | Emergency (ER) | payer MEDICAID ==
[~2019-10-06] VITALS: Ht 177.8 cm; Wt 74.8 kg
[~2019-10-06 19:51] MED LIST changes: +CIPROFLOXACIN500 M2 ORAL; +METRONIDAZOLE500 MG ORAL; +ONDANSETRON ODT4 MG BC
--- NOTE | 2019-10-06 20:13 | NUR ---
ED Nurse Note: Patient walked into the ED with c/o diarrhea and chills 1 houir ago after eating fish at 3pm today. Patient denies nausea and vomiting. Patient is afebrile and does not show flu like symptoms. Patient is AAOx4 and ambulatory. Placed on monitor bed
[2019-10-06 20:15] VITALS: BP 129/83
--- NOTE | 2019-10-06 20:20 | NUR ---
ED Nurse Note: ERMD at bedside
--- NOTE | 2019-10-06 20:30 | NUR ---
ED Nurse Note: Stool sent for workup
--- NOTE | 2019-10-06 20:38 | Emergency Room Report ---
History of Present Illness General Chief Complaint: Diarrhea Source: Patient Present Illness HPI Patient presents with diarrhea and chills. He has moved his bowels 5-6 times today. Last time this happened it turned out to be Giardia. He was treated with Flagyl. His mother was also treated with Flagyl. He is anxious about this and worried about possible COVID-19. Requesting a COVID-19 rapid test. He says there is no blood in the stool. It is brown in color. He also took a loperamide today. He took propranolol 10 mg for anxiety. He also took 1 of his mother's Flagyl tablets. He is also concerned as he has been handling his mother's stool to move from the shower and put into the toilet weekly. ts been well formed and she is been constipated. Patient is HIV positive and stable on antivirals. No fevers, sore throat, chest pain, palpitations, nausea, vomiting, dysuria, abdominal pain, shortness of breath, joint pain, rashes, visual changes, dizziness, headache. 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 COVID-19 Screening: Negative COVID-19 COVID-19 Testing Source: 09/01 Patient History Past Medical History: see triage record Social History: Denies: smoking, drug use - In the past Social History Narrative lives with his mother Reviewed Nursing Documentation: PMH: Agreed; PSxH: Agreed Nursing Documentation-PMH Hx Hypertension: No Hx Pacemaker: No Hx Asthma: No Hx COPD: No Hx Cancer: No Hx Dialysis: No Hx Cerebrovascular Accident: No Hx Seizures: No Review of Systems All Other Systems: negative except mentioned in HPI Physical Exam Vital Signs Date Time Temp Pulse Resp B/P (MAP) Pulse Ox O2 Delivery O2 Flow Rate FiO2 10/06/19 20:02 97.9 69 20 129/83 (98) 99 Room Air Sp02 EP Interpretation: reviewed, normal General Appearance: well appearing, no apparent distress, GCS 15 Head: normocephalic Eyes: bilateral eye normal inspection, bilateral eye PERRL, bilateral eye EOMI ENT: moist mucus membranes Neck: supple Respiratory: lungs clear, normal breath sounds Cardiovascular #1: regular rate, rhythm Cardiovascular #2: 2+ radial (R) Gastrointestinal: normal inspection, normal bowel sounds, non tender, no mass, non-distended, scaphoid Genitourinary: no CVA tenderness Musculoskeletal: back normal, normal range of motion, gait/station normal Neurologic: alert, oriented x3, grossly normal Psychiatric: anxious Skin: no rash, warm/dry Medical Decision Making Diagnostic Impression: Primary Impression: Diarrhea Qualified Codes: R19.7 - Diarrhea, unspecified Additional Impressions: Anxiety HIV (human immunodeficiency virus infection) Qualified Codes: Z21 - Asymptomatic human immunodeficiency virus [hiv] infection status ER Course Patient presents with diarrhea with a history of HIV. Differential includes functional diarrhea, infectious diarrhea, noninfectious diarrhea, food poisoning, opportunistic infection, parasite, protozoa amongst others. Based on patient's symptom complex and the fact he has been self isolating COVID-19 unlikely. Clinically the patient is stable. Stool will be obtained and sent to the lab for ova parasites, white cell smear and culture. The likelihood of protozoal or opportunistic infection is low due to the fact that his HIV is well controlled. Stool white cells negative. Urinalysis clear. Drug screen negative. Patient has an appointment for COVID-19 testing tomorrow. In addition he has a appointment with his private physician on Friday. Discussed results with patient and gave advice as to how to treat his symptoms. Advised to stop Flagyl. The patient was evaluated for possible COVID-19 infection. Based on history and physical and lab findings COVID-19 is not suspected. Patient stable for outpatient observation and treatment. Laboratory Tests Test 10/06/19 21:00 Urine Color Yellow Urine Appearance Slightly cloudy Urine pH 5 (4.5-8.0) Urine Specific [place] 1.030 (1.005-1.035) Urine Protein 2+ (NEGATIVE) H Urine Glucose (UA) Negative (NEGATIVE) Urine Ketones 1+ (NEGATIVE) H Urine Blood Negative (NEGATIVE) Urine Nitrite Negative (NEGATIVE) Urine Bilirubin 1+ (NEGATIVE) H Urine Ictotest Negative (NEGATIVE) Urine Urobilinogen 1 MG/DL (0.0-1.0) H Urine Leukocyte Esterase 1+ (NEGATIVE) H Urine RBC 0-2 /HPF (0 - 0) H Urine WBC 5-10 /HPF (0 - 0) H Urine Squamous Epithelial Cells Occasional /LPF Urine Bacteria Moderate /HPF (NONE) H Urine Mucus Many /LPF (NONE/OCC) H Urine Opiates Screen Negative (NEGATIVE) Urine Barbiturates Screen Negative (NEGATIVE) Phencyclidine (PCP) Screen Negative (NEGATIVE) Urine Amphetamines Screen Negative (NEGATIVE) Urine Benzodiazepines Screen Negative (NEGATIVE) Urine Cocaine Screen Negative (NEGATIVE) Urine Marijuana (THC) Screen Negative (NEGATIVE) Microbiology Date/Time Source Procedure Growth Status 10/06/19 20:30 Rectum WBC Smear - Final Complete Last Vital Signs Date Time Temp Pulse Resp B/P (MAP) Pulse Ox O2 Delivery O2 Flow Rate FiO2 10/06/19 21:45 98.0 88 18 121/78 98 Room Air Status: unchanged Disposition: HOME, SELF-CARE Condition: Stable Referrals: NON PHYSICIAN (PCP) Tani Smith MD Oct 06, 2019 20:38
--- NOTE | 2019-10-06 20:58 | NUR ---
ED Nurse Note: Urine sent for workup
[2019-10-06 21:13] LABS: APPEARANCE,URINE SLIGHTLY CLOUDY; BILIRUBIN, URINE 1+ (NEGATIVE); GLUCOSE, URINE (UA) NEGATIVE (NEGATIVE); KETONES,URINE 1+ (NEGATIVE); LEUKOCYTE ESTERASE ,URINE 1+ (NEGATIVE); NITRITE,URINE NEGATIVE (NEGATIVE); PH,URINE 5 (4.5-8.0); PROTEIN,URINE 2+ (NEGATIVE); UROBILINOGEN,URINE 1 MG/DL (0.0-1.0)
[2019-10-06 21:16] LABS: COLOR,URINE YELLOW
[2019-10-06 21:45] VITALS: BP 121/78
--- NOTE | 2019-10-06 21:45 | NUR ---
ER DISCHARGE NOTE: Patient is cleared to be discharged per ERMD, pt is aox4, on room air, with stable vital signs. pt was given dc and prescription instructions, pt was able to verbalize understanding, pt id band removed. pt is able to ambulate with steady gait. pt took all belongings.
[2019-10-13] MEDS ORDERED: BACTRIM DS TAB1 EAC1 ORAL (13:56)
== END 2019-10-06 21:45 | disposition home or self-care (01) ==
LOC: EMR 20:10
DX: R19.7 Diarrhea, unspecified (principal); F41.9 Anxiety disorder, unspecified; Z21 Asymptomatic human immunodeficiency virus [HIV] infection status; Z88.8 Allergy status to other drugs, medicaments and biological substances
CPT/HCPCS: 80307; 81003; 87045; 87086; 87205; Z7502; 87181; 99283